=== PATIENT | male | born 1950 | race Caucasian/White ===

== ENCOUNTER 2018-06-11 12:05 | Emergency (ER) | payer SELFPAY ==
[~2018-06-11] VITALS: Ht 167.6 cm; Wt 80.0 kg
[2018-06-11 12:08] VITALS: BP 139/61
== END 2018-06-11 13:07 | disposition home or self-care (01) ==
LOC: ER 12:44
DX: Z76.89 Persons encountering health services in other specified circumstances (principal); R03.0 Elevated blood-pressure reading, without diagnosis of hypertension
CPT/HCPCS: 99283

== ENCOUNTER 2019-08-20 10:32 | Emergency (ER) | payer SELFPAY ==
[~2019-08-20] VITALS: Ht 170.2 cm; Wt 68.0 kg
[2019-08-20] MEDS ORDERED: PHENYTOIN SODIUM 100MG/2ML VIAL IV ONE (13:15)
[2019-08-20] MEDS ORDERED: PHENYTOIN SODIUM 500 MG in SODIUM CHLORIDE 0.9% 50 ML IV NR (15:00)
[2019-08-20] MEDS ORDERED: PHENYTOIN SODIUM 500MG in SODIUM CHLORIDE 0.9% 50ML IV SCH (17:30)
[2019-08-20 20:00] VITALS: BP 107/59
== END 2019-08-20 20:07 | disposition home or self-care (01) ==
LOC: ER 10:32
DX: G40.909 Epilepsy, unspecified, not intractable, without status epilepticus (principal); R89.2 Abnormal level of other drugs, medicaments and biological substances in specimens from other organs, systems and tissues; F19.10 Other psychoactive substance abuse, uncomplicated; Z98.890 Other specified postprocedural states
CPT/HCPCS: 36415; 80185; 96365; 96366; 99283; J1165; Z7610

== ENCOUNTER 2019-09-24 11:10 | Emergency (ER) | payer SELFPAY ==
[~2019-09-24] VITALS: Ht 170.2 cm; Wt 65.0 kg
[2019-09-24] MEDS ORDERED: HALOPERIDOL LACTATE 5MG/ML VIAL IM ONE (13:15)
[2019-09-24 13:22] LABS: EOSINOPHILS % 2.7 % (0.0-5.0); HEMATOCRIT. 38.3 % (42.0-52.0); HEMOGLOBIN. 13.1 g/dL (14.0-18.0); LYMPHOCYTES % 10.3 % (20.0-50.0); MEAN CORPUSCULAR HEMOGLOBIN 33.7 pg (28.0-32.0); MEAN CORPUSCULAR VOLUME 98.5 fL (80.0-94.0); MEAN PLATELET VOLUME 8.3 fl (7.4-10.4); MONOCYTES % 6.9 % (2.0-8.0); NEUTROPHILS % 79.1 % (40.0-76.0); PLATELET 241 x1000/uL (130-400); RED BLOOD CELL COUNT 3.89 mill/uL (4.7-6.1); RED CELL DISTRIBUTION WIDTH 12.7 % (11.6-14.6)
[2019-09-24 13:36] LABS: CHLORIDE 110 mEq/L (98-107)
[2019-09-24 13:40] LABS: ETHANOL BLOOD < 10 mg/dL
[2019-09-24 13:41] LABS: PROTHROMBIN TIME 10.4 sec (9.6-11.0)
[2019-09-24] MEDS ORDERED: LORAZEPAM 2MG/ML CPJ IV SCH (14:30)
[2019-09-24 15:37] LABS: CLARITY URINE CLEAR (CLEAR); COLOR URINE YELLOW (YELLOW); KETONES URINE NEGATIVE (NEGATIVE); LEUKOCYTE ESTERASE URINE NEGATIVE (NEGATIVE); NITRITE URINE NEGATIVE (NEGATIVE); OCCULT BLOOD URINE NEGATIVE (NEGATIVE); PROTEIN URINE NEGATIVE (NEGATIVE); SPECIFIC GRAVITY URINE 1.025 (1.005-1.030); UROBILINOGEN URINE 0.2 E.U./dL (0.2-1.0)
[2019-09-24 15:46] LABS: *BARBITURATES SCREEN URINE NEGATIVE (NEGATIVE); *BENZODIAZEPINES SCREEN URINE NEGATIVE (NEGATIVE); *COCAINE SCREEN URINE NEGATIVE (NEGATIVE)
[2019-09-24 15:47] LABS: *AMPHETAMINES SCREEN URINE NEGATIVE (NEGATIVE); CANNABINOID URINE SCREEN NEGATIVE (NEGATIVE); METHADONE URINE SCREEN NEGATIVE (NEGATIVE); OPIATES URINE SCREEN NEGATIVE (NEGATIVE); PHENCYCLIDINE URINE SCREEN NEGATIVE (NEGATIVE)
[2019-09-24 17:50] VITALS: BP 121/60
== END 2019-09-24 17:50 | disposition home or self-care (01) ==
LOC: ER 11:20 → CANBEDREQ 17:53
DX: R41.82 Altered mental status, unspecified (principal)
CPT/HCPCS: 36415; 70450; 71045; 80053; 80305; 80307; 80320; 80329; 81003; 82140; 83690; 84443; 84484; 85025; 85610; 86850; 86900; 86901; 93005; 96372; 99284; J1630; J2060; G0480

== ENCOUNTER 2019-10-01 12:17 | Emergency (ER) | payer SELFPAY ==
[~2019-10-01] VITALS: Ht 165.1 cm; Wt 68.0 kg
[2019-10-01 12:47] VITALS: BP 135/89
== END 2019-10-01 13:24 | disposition home or self-care (01) ==
LOC: ER 12:17
DX: G40.909 Epilepsy, unspecified, not intractable, without status epilepticus (principal)
CPT/HCPCS: 99283